=== PATIENT | male | born 1955 | race Caucasian/White ===

== ENCOUNTER 2019-12-31 10:59 | Inpatient (IN) | payer MEDICAID, OTHER ==
[~2019-12-31] VITALS: Ht 170.2 cm; Wt 71.2 kg
[2019-12-31 11:45] LABS: HEMATOCRIT. 44.7 % (42.0-52.0); HEMOGLOBIN. 14.8 g/dL (14.0-18.0); MEAN CORPUSCULAR HEMOGLOBIN 29.6 pg (28.0-32.0); MEAN CORPUSCULAR VOLUME 89.1 fL (80.0-94.0); MEAN PLATELET VOLUME 8.4 fl (7.4-10.4); PLATELET 343 x1000/uL (130-400); RED BLOOD CELL COUNT 5.02 mill/uL (4.7-6.1); RED CELL DISTRIBUTION WIDTH 14.2 % (11.6-14.6)
[2019-12-31 11:47] LABS: CHLORIDE 96 mEq/L (98-107)
[2019-12-31 12:13] LABS: BG BASE EXCESS -5.4 mmol/L (-2.0-2.0); BG BILEVEL POS AIRWAY PRESSURE ST=15/5; BG FRACTION INSPIRED OXYGEN 100; BG HCO3 ACT 16.7 mmol/L (22.0-26.0); BG METHEMOGLOBIN 0.2 % (0.0-1.5); BG OXYHEMOGLOBIN 96.8 % (94.0-97.0); BG PCO2 24.7 mmHg (35.0-45.0); BG PH 7.448 (7.350-7.450); BG PO2 125.4 mmHg (75.0-100.0); BG SAMPLE SITE RIGHT RADIAL; BG VENT MODE MASK - BIPAP; BG VENT RATE 20 set
[2019-12-31 12:23] LABS: PLATELET ESTIMATE NORMAL
[2019-12-31] MEDS ORDERED: ASPIRIN 81MG TABLET PO ONE (13:00)
[2019-12-31] MEDS ORDERED: AZITHROMYCIN 500 MG in DEXT 5% WATER 250 ML IV ONE (13:00)
[2019-12-31] MEDS ORDERED: CEFTRIAXONE 1 G PREMIX 50 ML IV ONE (13:00)
[2019-12-31] MEDS ORDERED: ENOXAPARIN 100MG/ML SYR SUBCUT ONE (13:00)
[2019-12-31] MEDS ORDERED: INSULIN REGULAR (HUMULIN R) 300UNITS/3ML SUBCUT ONE (14:00)
[2019-12-31] MEDS ORDERED: INSULIN GLARGINE UD 100 UNITS/ML SYR SUBCUT NR (15:00)
[2019-12-31 15:03] LABS: INR 1.1; PROTHROMBIN TIME 11.3 sec (9.6-11.0)
[2019-12-31 15:29] LABS: HEPATITIS B SURFACE ANTIGEN NEGATIVE
[2019-12-31 15:59] LABS: HEPATITIS A AB IGM NEGATIVE (NEGATIVE)
[2019-12-31] MEDS ORDERED: FUROSEMIDE 40MG/4ML VIAL IVP SCH (17:15)
[2019-12-31] MEDS ORDERED: ALBUMIN HUMAN 12.5GM/50ML (25%) IV SCH (18:00)
[2019-12-31] MEDS ORDERED: INSULIN GLARGINE UD 100 UNITS/ML SYR SUBCUT SCH (22:00)
[2019-12-31] MEDS ORDERED: ENOXAPARIN 100MG/ML SYR SUBCUT SCH (23:00)
[2019-12-31] MEDS: INSULIN LISPRO 100 UNITS/ML SUBCUT SCH (23:40)
[2019-12-31] MEDS: FUROSEMIDE 40MG/4ML VIAL IVP SCH (23:40)
[2019-12-31] MEDS: DEXAMETHASONE 4MG TABLET PO SCH (23:48)
[2020-01-01 02:00] VITALS: BP 123/72
[2020-01-01] MEDS: ALBUTEROL 6.7GM HFA INHALER ORI SCH ×4 (03:33→22:16)
[2020-01-01 04:00] VITALS: BP 149/76
[2020-01-01] MEDS: BLOOD SUGAR DIAGNOSTIC STRIP TEST SCH ×4 (06:43→20:11)
[2020-01-01 08:00] VITALS: BP 147/71
[2020-01-01] MEDS: DEXAMETHASONE 4MG TABLET PO SCH (08:58)
[2020-01-01] MEDS: FUROSEMIDE 40MG/4ML VIAL IVP SCH (08:58)
[2020-01-01] MEDS: AZITHROMYCIN 250 MG TABLET PO SCH (08:59)
[2020-01-01] MEDS: INSULIN LISPRO 100 UNITS/ML SUBCUT SCH ×5 (08:59→20:18)
[2020-01-01] MEDS: CEFTRIAXONE 1,000 MG in DEXTROSE 5% WATER 50 ML IV SCH (09:00)
[2020-01-01] MEDS ORDERED: INSULIN GLARGINE UD 100 UNITS/ML SYR SUBCUT SCH (10:00)
[2020-01-01 10:07] LABS: HEMOGLOBIN. 13.7 g/dL (14.0-18.0); MEAN CORPUSCULAR VOLUME 89.1 fL (80.0-94.0); MEAN PLATELET VOLUME 8.5 fl (7.4-10.4); PLATELET 302 x1000/uL (130-400); RED BLOOD CELL COUNT 4.72 mill/uL (4.7-6.1)
[2020-01-01 10:16] LABS: CHLORIDE 100 mEq/L (98-107)
[2020-01-01] MEDS ORDERED: METF-815 MT (11:00)
[2020-01-01 12:00] VITALS: BP 122/69
[2020-01-01] MEDS ORDERED: CEFTRIAXONE 1,000 MG in DEXTROSE 5% WATER 50 ML IV SCH (13:00)
[2020-01-01] MEDS: ALBUMIN HUMAN 12.5GM/50ML (25%) IV SCH ×3 (14:28→23:01)
[2020-01-01 16:00] VITALS: BP 125/71
[2020-01-01] MEDS ORDERED: FUROSEMIDE 40MG/4ML VIAL IVP SCH (17:00)
[2020-01-01 20:00] VITALS: BP 127/70
[2020-01-01] MEDS: ENOXAPARIN 80MG/0.8ML SYR SUBCUT SCH (20:10)
[2020-01-01] MEDS: INSULIN GLARGINE UD 100 UNITS/ML SYR SUBCUT SCH (22:16)
[2020-01-01 22:57] LABS: PLATELET ESTIMATE NORMAL
[2020-01-02] VITALS: BP 116/66
[2020-01-02 00:25] LABS: LDL CHOLESTEROL 71 mg/dL (5-100)
[2020-01-02 00:27] LABS: HDL CHOLESTEROL 9 mg/dL (40-59)
[2020-01-02] MEDS: ALBUTEROL 6.7GM HFA INHALER ORI SCH ×4 (03:54→21:16)
[2020-01-02 04:00] VITALS: BP 125/60
[2020-01-02] MEDS: BLOOD SUGAR DIAGNOSTIC STRIP TEST SCH ×4 (06:40→21:14)
[2020-01-02 07:14] LABS: HEMATOCRIT. 38.5 % (42.0-52.0); MEAN CORPUSCULAR HEMOGLOBIN 29.7 pg (28.0-32.0); MEAN CORPUSCULAR VOLUME 87.7 fL (80.0-94.0); MEAN PLATELET VOLUME 8.4 fl (7.4-10.4); PLATELET 287 x1000/uL (130-400); RED BLOOD CELL COUNT 4.39 mill/uL (4.7-6.1); RED CELL DISTRIBUTION WIDTH 13.8 % (11.6-14.6)
[2020-01-02 07:47] LABS: CHLORIDE 102 mEq/L (98-107)
[2020-01-02 08:00] VITALS: BP 133/74
[2020-01-02] MEDS: AZITHROMYCIN 250 MG TABLET PO SCH (08:15)
[2020-01-02] MEDS: DEXAMETHASONE 4MG TABLET PO SCH (08:15)
[2020-01-02] MEDS: ENOXAPARIN 80MG/0.8ML SYR SUBCUT SCH ×2 (08:16→21:24)
[2020-01-02] MEDS: INSULIN LISPRO 100 UNITS/ML SUBCUT SCH ×7 (08:17→21:35)
[2020-01-02] MEDS ORDERED: FUROSEMIDE 40MG/4ML VIAL IVP SCH (09:00)
[2020-01-02] MEDS ORDERED: FUROSEMIDE 40MG TABLET PO SCH (09:00)
[2020-01-02] MEDS: CEFTRIAXONE 1,000 MG in DEXTROSE 5% WATER 50 ML IV SCH (10:54)
[2020-01-02] MEDS: INSULIN GLARGINE UD 100 UNITS/ML SYR SUBCUT SCH ×2 (10:55→21:36)
[2020-01-02 12:00] VITALS: BP 117/73
[2020-01-02 16:00] VITALS: BP 123/73
[2020-01-02 19:35] LABS: PLATELET ESTIMATE NORMAL
[2020-01-02 20:00] VITALS: BP 129/75
[2020-01-02] MEDS: ATORVASTATIN CALCIUM 10MG TABLET PO SCH (21:18)
[2020-01-03] VITALS (8 sets, daily range): BP systolic 90–131; BP diastolic 60–76
[2020-01-03] MEDS: ALBUTEROL 6.7GM HFA INHALER ORI SCH ×4 (04:15→20:32)
[2020-01-03] MEDS: BLOOD SUGAR DIAGNOSTIC STRIP TEST SCH ×4 (06:22→20:30)
[2020-01-03] MEDS: AZITHROMYCIN 250 MG TABLET PO SCH (08:25)
[2020-01-03] MEDS: DEXAMETHASONE 4MG TABLET PO SCH (08:25)
[2020-01-03] MEDS: INSULIN LISPRO 100 UNITS/ML SUBCUT SCH ×6 (08:26→20:48)
[2020-01-03] MEDS: ENOXAPARIN 80MG/0.8ML SYR SUBCUT SCH ×2 (08:27→20:32)
[2020-01-03 08:40] LABS: HEMATOCRIT. 40.9 % (42.0-52.0); HEMOGLOBIN. 13.6 g/dL (14.0-18.0); MEAN CORPUSCULAR HEMOGLOBIN 29.1 pg (28.0-32.0); MEAN CORPUSCULAR VOLUME 87.7 fL (80.0-94.0); MEAN PLATELET VOLUME 8.2 fl (7.4-10.4); PLATELET 335 x1000/uL (130-400); RED BLOOD CELL COUNT 4.66 mill/uL (4.7-6.1); RED CELL DISTRIBUTION WIDTH 13.5 % (11.6-14.6)
[2020-01-03 08:51] LABS: CHLORIDE 103 mEq/L (98-107)
[2020-01-03] MEDS ORDERED: GUAIFENESIN-DM 200MG-20MG/10ML UDC PO PRN (10:00)
[2020-01-03] MEDS: CEFTRIAXONE 1,000 MG in DEXTROSE 5% WATER 50 ML IV SCH (10:00)
[2020-01-03] MEDS: INSULIN GLARGINE UD 100 UNITS/ML SYR SUBCUT SCH ×2 (10:01→20:49)
[2020-01-03] MEDS ORDERED: BENZONATATE 100MG CAPSULE PO PRN (11:15)
[2020-01-03 12:32] LABS: PLATELET ESTIMATE NORMAL
[2020-01-03] MEDS: ATORVASTATIN CALCIUM 10MG TABLET PO SCH (20:30)
[2020-01-04] VITALS (40 sets, daily range): BP systolic 73–130; BP diastolic 44–78
[2020-01-04] MEDS: ALBUTEROL 6.7GM HFA INHALER ORI SCH ×3 (03:56→21:34)
[2020-01-04] MEDS: BLOOD SUGAR DIAGNOSTIC STRIP TEST SCH ×4 (06:28→20:41)
[2020-01-04] MEDS: INSULIN LISPRO 100 UNITS/ML SUBCUT SCH ×4 (07:27→20:41)
[2020-01-04] MEDS: AZITHROMYCIN 250 MG TABLET PO SCH (08:31)
[2020-01-04] MEDS: ENOXAPARIN 80MG/0.8ML SYR SUBCUT SCH ×2 (08:31→20:46)
[2020-01-04] MEDS: DEXAMETHASONE 4MG TABLET PO SCH (08:31)
[2020-01-04 10:00] LABS: BG BASE EXCESS 1.8 mmol/L (-2.0-2.0); BG CARBOXYHEMOGLOBIN 0.6 % (0.5-1.5); BG DEOXYHEMOGLOBIN 11.8 % (0.0-5.0); BG METHEMOGLOBIN 0.1 % (0.0-1.5); BG OXYGEN SATURATION 88.1 % (92.0-98.5); BG OXYHEMOGLOBIN 87.5 % (94.0-97.0); BG PCO2 39.3 mmHg (35.0-45.0); BG PH 7.438 (7.350-7.450); BG PO2 55.4 mmHg (75.0-100.0); BG SAMPLE SITE RIGHT RADIAL; BG TIDAL VOLUME(mL) 500 mL; BG VENT MODE VENT- PRVC; BG VENT RATE 18 set
[2020-01-04] MEDS: INSULIN GLARGINE UD 100 UNITS/ML SYR SUBCUT SCH ×2 (10:00→21:26)
[2020-01-04] MEDS: MIDAZOLAM HCL 100 MG in DEXT 5% WATER 80 ML IV PRN ×2 (10:31→20:53)
[2020-01-04] MEDS: FENTANYL CITRATE/PF 1,000 MCG in SODIUM CHLORIDE 0.9% 80 ML IV PRN ×2 (10:32→20:55)
[2020-01-04] MEDS: CEFTRIAXONE 1,000 MG in DEXTROSE 5% WATER 50 ML IV SCH (11:24)
[2020-01-04] MEDS: ACETAMINOPHEN 650MG/20.3ML UDC PO PRN (15:14)
[2020-01-04 16:16] LABS: CLARITY URINE CLEAR (CLEAR); COLOR URINE YELLOW (YELLOW); KETONES URINE TRACE (NEGATIVE); LEUKOCYTE ESTERASE URINE NEGATIVE (NEGATIVE); NITRITE URINE NEGATIVE (NEGATIVE); OCCULT BLOOD URINE 1+ (NEGATIVE); PH URINE 5.5 (4.5-8.0); PROTEIN URINE 3+ (NEGATIVE); SPECIFIC GRAVITY URINE 1.026 (1.005-1.030); UROBILINOGEN URINE 0.2 E.U./dL (0.2-1.0)
[2020-01-04] MEDS: DEXTROSE 50% WATER 50ML SYRINGE IV PRN (18:08)
[2020-01-04] MEDS: PHENYLEPHRINE 100 MG in DEXT 5% WATER 240 ML IV PRN (18:52)
[2020-01-04] MEDS: ATORVASTATIN CALCIUM 10MG TABLET PO SCH (20:45)
[2020-01-05] VITALS (94 sets, daily range): BP systolic 77–139; BP diastolic 51–75
[2020-01-05] MEDS: ALBUTEROL 6.7GM HFA INHALER ORI SCH ×2 (01:12→09:05)
[2020-01-05] MEDS: PHENYLEPHRINE 100 MG in DEXT 5% WATER 240 ML IV PRN ×2 (05:14→21:53)
[2020-01-05] MEDS: BLOOD SUGAR DIAGNOSTIC STRIP TEST SCH ×4 (06:15→20:59)
[2020-01-05] MEDS: INSULIN LISPRO 100 UNITS/ML SUBCUT SCH ×4 (06:15→20:59)
[2020-01-05 06:16] LABS: HEMATOCRIT. 45.4 % (42.0-52.0); MEAN CORPUSCULAR HEMOGLOBIN 29.8 pg (28.0-32.0); MEAN CORPUSCULAR VOLUME 90.1 fL (80.0-94.0); MEAN PLATELET VOLUME 8.5 fl (7.4-10.4); PLATELET 297 x1000/uL (130-400); RED BLOOD CELL COUNT 5.04 mill/uL (4.7-6.1); RED CELL DISTRIBUTION WIDTH 14.2 % (11.6-14.6)
[2020-01-05] MEDS: DEXTROSE 50% WATER 50ML SYRINGE IV PRN (06:16)
[2020-01-05 06:26] LABS: CHLORIDE 104 mEq/L (98-107)
[2020-01-05 08:15] LABS: BG BASE EXCESS 0.6 mmol/L (-2.0-2.0); BG CARBOXYHEMOGLOBIN 0.3 % (0.5-1.5); BG DEOXYHEMOGLOBIN 1.2 % (0.0-5.0); BG FRACTION INSPIRED OXYGEN 100; BG HCO3 ACT 26.5 mmol/L (22.0-26.0); BG METHEMOGLOBIN 0.3 % (0.0-1.5); BG OXYGEN SATURATION 98.8 % (92.0-98.5); BG OXYHEMOGLOBIN 98.2 % (94.0-97.0); BG PCO2 46.9 mmHg (35.0-45.0); BG PO2 204.8 mmHg (75.0-100.0); BG SAMPLE SITE RIGHT BRACHIAL; BG TIDAL VOLUME(mL) 500 mL; BG TOTAL HEMOGLOBIN 15.3 g/dL (12.0-18.0); BG VENT MODE PRVC; BG VENT RATE 16 set
[2020-01-05] MEDS: AZITHROMYCIN 250 MG TABLET PO SCH (08:39)
[2020-01-05] MEDS: DEXAMETHASONE 4MG TABLET PO SCH (08:39)
[2020-01-05] MEDS: ENOXAPARIN 80MG/0.8ML SYR SUBCUT SCH ×2 (08:39→20:50)
[2020-01-05] MEDS ORDERED: LIDOCAINE HCL 1% 20ML VIAL (Pyxis) INJ ONE (09:56)
[2020-01-05] MEDS: CEFTRIAXONE 1,000 MG in DEXTROSE 5% WATER 50 ML IV SCH (10:30)
[2020-01-05] MEDS: INSULIN GLARGINE UD 100 UNITS/ML SYR SUBCUT SCH ×2 (10:31→21:33)
[2020-01-05] MEDS ORDERED: IPRATROPIUM/ALBUTEROL 0.5-3(2.5)MG/3ML NEB HHN PRN (10:45)
[2020-01-05 12:20] LABS: PLATELET ESTIMATE NORMAL
[2020-01-05] MEDS: IPRATROPIUM/ALBUTEROL 0.5-3(2.5)MG/3ML NEB HHN SCH ×4 (12:27→23:49)
[2020-01-05] MEDS: FENTANYL CITRATE/PF 1,000 MCG in SODIUM CHLORIDE 0.9% 80 ML IV PRN (17:16)
[2020-01-05] MEDS: MIDAZOLAM HCL 100 MG in DEXT 5% WATER 80 ML IV PRN (17:17)
[2020-01-05] MEDS: ATORVASTATIN CALCIUM 10MG TABLET PO SCH (20:50)
[2020-01-06] VITALS (93 sets, daily range): BP systolic 99–121; BP diastolic 53–75
[2020-01-06] MEDS: IPRATROPIUM/ALBUTEROL 0.5-3(2.5)MG/3ML NEB HHN SCH ×5 (00:10→20:00)
[2020-01-06] MEDS: BLOOD SUGAR DIAGNOSTIC STRIP TEST SCH ×4 (05:47→20:33)
[2020-01-06 05:55] LABS: HEMATOCRIT. 41.2 % (42.0-52.0); HEMOGLOBIN. 13.7 g/dL (14.0-18.0); MEAN CORPUSCULAR HEMOGLOBIN 30.3 pg (28.0-32.0); MEAN CORPUSCULAR VOLUME 91.5 fL (80.0-94.0); RED BLOOD CELL COUNT 4.51 mill/uL (4.7-6.1); RED CELL DISTRIBUTION WIDTH 14.2 % (11.6-14.6)
[2020-01-06 05:58] LABS: CHLORIDE 105 mEq/L (98-107)
[2020-01-06] MEDS: INSULIN LISPRO 100 UNITS/ML SUBCUT SCH ×4 (06:00→20:58)
[2020-01-06 07:21] LABS: MEAN PLATELET VOLUME 8.1 fl (7.4-10.4); PLATELET ESTIMATE NORMAL
[2020-01-06 07:22] LABS: PLATELET 317 x1000/uL (130-400)
[2020-01-06] MEDS: DEXAMETHASONE 4MG TABLET PO SCH (08:39)
[2020-01-06] MEDS: ENOXAPARIN 80MG/0.8ML SYR SUBCUT SCH ×2 (08:39→20:57)
[2020-01-06 08:48] LABS: BG CARBOXYHEMOGLOBIN 0.4 % (0.5-1.5); BG DEOXYHEMOGLOBIN 1.3 % (0.0-5.0); BG FRACTION INSPIRED OXYGEN 70; BG HCO3 ACT 30.6 mmol/L (22.0-26.0); BG METHEMOGLOBIN 0.5 % (0.0-1.5); BG OXYGEN SATURATION 98.7 % (92.0-98.5); BG OXYHEMOGLOBIN 97.8 % (94.0-97.0); BG PCO2 57.6 mmHg (35.0-45.0); BG PH 7.343 (7.350-7.450); BG PO2 160.1 mmHg (75.0-100.0); BG SAMPLE SITE RIGHT RADIAL; BG TIDAL VOLUME(mL) 500 mL; BG TOTAL HEMOGLOBIN 16.8 g/dL (12.0-18.0); BG VENT MODE PRVC; BG VENT RATE 16 set
[2020-01-06] MEDS: CEFTRIAXONE 1,000 MG in DEXTROSE 5% WATER 50 ML IV SCH (09:01)
[2020-01-06] MEDS: INSULIN GLARGINE UD 100 UNITS/ML SYR SUBCUT SCH (10:17)
[2020-01-06] MEDS: MIDAZOLAM HCL 100 MG in DEXT 5% WATER 80 ML IV PRN (13:45)
[2020-01-06] MEDS: FENTANYL CITRATE/PF 1,000 MCG in SODIUM CHLORIDE 0.9% 80 ML IV PRN (13:46)
[2020-01-06] MEDS: PHENYLEPHRINE 100 MG in DEXT 5% WATER 240 ML IV PRN (17:03)
[2020-01-06] MEDS: ATORVASTATIN CALCIUM 10MG TABLET PO SCH (20:57)
[2020-01-06] MEDS ORDERED: INSULIN GLARGINE UD 100 UNITS/ML SYR SUBCUT SCH (22:00)
[2020-01-07] VITALS (89 sets, daily range): BP systolic 95–136; BP diastolic 49–74
[2020-01-07] MEDS: IPRATROPIUM/ALBUTEROL 0.5-3(2.5)MG/3ML NEB HHN SCH ×6 (00:10→20:42)
[2020-01-07 05:00] LABS: HEMATOCRIT. 38.2 % (42.0-52.0); HEMOGLOBIN. 12.5 g/dL (14.0-18.0); MEAN CORPUSCULAR HEMOGLOBIN 29.6 pg (28.0-32.0); MEAN CORPUSCULAR VOLUME 90.3 fL (80.0-94.0); MEAN PLATELET VOLUME 8.1 fl (7.4-10.4); PLATELET 297 x1000/uL (130-400); RED BLOOD CELL COUNT 4.23 mill/uL (4.7-6.1)
[2020-01-07 05:16] LABS: CHLORIDE 110 mEq/L (98-107)
[2020-01-07] MEDS: BLOOD SUGAR DIAGNOSTIC STRIP TEST SCH ×4 (05:40→23:04)
[2020-01-07] MEDS: INSULIN LISPRO 100 UNITS/ML SUBCUT SCH ×6 (05:42→23:06)
[2020-01-07] MEDS: ENOXAPARIN 80MG/0.8ML SYR SUBCUT SCH (08:52)
[2020-01-07] MEDS: DEXAMETHASONE 4MG TABLET PO SCH (08:52)
[2020-01-07 10:12] LABS: BG BASE EXCESS 1.6 mmol/L (-2.0-2.0); BG CARBOXYHEMOGLOBIN 0.1 % (0.5-1.5); BG FRACTION INSPIRED OXYGEN 50; BG HCO3 ACT 27.4 mmol/L (22.0-26.0); BG METHEMOGLOBIN 0.3 % (0.0-1.5); BG OXYHEMOGLOBIN 93.6 % (94.0-97.0); BG PCO2 48.1 mmHg (35.0-45.0); BG PH 7.373 (7.350-7.450); BG PO2 73.8 mmHg (75.0-100.0); BG SAMPLE SITE RIGHT RADIAL; BG TIDAL VOLUME(mL) 500 mL; BG TOTAL HEMOGLOBIN 12.4 g/dL (12.0-18.0); BG VENT MODE VENT - PRVC; BG VENT RATE 18 set
[2020-01-07] MEDS: MIDAZOLAM HCL 100 MG in DEXT 5% WATER 80 ML IV PRN (10:19)
[2020-01-07] MEDS: FENTANYL CITRATE/PF 1,000 MCG in SODIUM CHLORIDE 0.9% 80 ML IV PRN (10:20)
[2020-01-07] MEDS ORDERED: MIDODRINE HCL 5MG TABLET PO SCH (10:30)
[2020-01-07 10:48] LABS: PLATELET ESTIMATE NORMAL
[2020-01-07] MEDS ORDERED: SODIUM POLYSTYRENE SULFONATE 15 G/60 ML BOT PO SCH (11:00)
[2020-01-07] MEDS ORDERED: SODIUM CHLORIDE 0.9% 500 ML IV NR (11:15)
[2020-01-07] MEDS ORDERED: INSULIN LISPRO 100 UNITS/ML SUBCUT SCH (11:30)
[2020-01-07] MEDS: MIDODRINE HCL 5MG TABLET PO SCH ×2 (14:46→22:38)
[2020-01-07] MEDS: ATORVASTATIN CALCIUM 10MG TABLET PO SCH (20:33)
[2020-01-07] MEDS: INSULIN GLARGINE UD 100 UNITS/ML SYR SUBCUT SCH (22:49)
[2020-01-08] VITALS (93 sets, daily range): BP systolic 98–183; BP diastolic 49–97
[2020-01-08] MEDS: IPRATROPIUM/ALBUTEROL 0.5-3(2.5)MG/3ML NEB HHN SCH ×6 (00:52→20:20)
[2020-01-08] MEDS: FENTANYL CITRATE/PF 1,000 MCG in SODIUM CHLORIDE 0.9% 80 ML IV PRN ×2 (04:17→18:52)
[2020-01-08] MEDS: BLOOD SUGAR DIAGNOSTIC STRIP TEST SCH ×4 (05:13→23:07)
[2020-01-08] MEDS: MIDODRINE HCL 5MG TABLET PO SCH ×3 (05:13→22:37)
[2020-01-08] MEDS: INSULIN LISPRO 100 UNITS/ML SUBCUT SCH ×8 (05:14→23:07)
[2020-01-08 05:58] LABS: HEMATOCRIT. 38.6 % (42.0-52.0); HEMOGLOBIN. 12.5 g/dL (14.0-18.0); MEAN CORPUSCULAR HEMOGLOBIN 29.5 pg (28.0-32.0); MEAN CORPUSCULAR VOLUME 90.7 fL (80.0-94.0); PLATELET 221 x1000/uL (130-400); RED BLOOD CELL COUNT 4.25 mill/uL (4.7-6.1); RED CELL DISTRIBUTION WIDTH 13.9 % (11.6-14.6)
[2020-01-08 06:05] LABS: CHLORIDE 117 mEq/L (98-107)
[2020-01-08 07:58] LABS: BG BASE EXCESS 6.2 mmol/L (-2.0-2.0); BG CARBOXYHEMOGLOBIN 0.3 % (0.5-1.5); BG DEOXYHEMOGLOBIN 8.2 % (0.0-5.0); BG HCO3 ACT 31.5 mmol/L (22.0-26.0); BG OXYGEN SATURATION 91.8 % (92.0-98.5); BG OXYHEMOGLOBIN 91.5 % (94.0-97.0); BG PCO2 48.4 mmHg (35.0-45.0); BG PH 7.432 (7.350-7.450); BG PO2 64.6 mmHg (75.0-100.0); BG SAMPLE SITE A-LINE; BG TIDAL VOLUME(mL) 500 mL; BG TOTAL HEMOGLOBIN 12.5 g/dL (12.0-18.0); BG VENT MODE VENT- PRVC; BG VENT RATE 18 set
[2020-01-08 08:01] LABS: PLATELET ESTIMATE NORMAL
[2020-01-08] MEDS: ENOXAPARIN 40MG/0.4ML SYR SUBCUT SCH (09:00)
[2020-01-08] MEDS: ACETAMINOPHEN 650MG/20.3ML UDC PO PRN (09:15)
[2020-01-08] MEDS: DEXAMETHASONE 4MG TABLET PO SCH (09:15)
[2020-01-08] MEDS: INSULIN GLARGINE UD 100 UNITS/ML SYR SUBCUT SCH ×2 (09:22→23:00)
[2020-01-08] MEDS ORDERED: LACTULOSE 20G/30ML UDC PO NR (10:30)
[2020-01-08] MEDS ORDERED: LACTULOSE 20G/30ML UDC PO PRN (10:30)
[2020-01-08] MEDS ORDERED: DOCUSATE SODIUM 250MG CAPSULE PO SCH (10:30)
[2020-01-08] MEDS: DOCUSATE SODIUM SUGAR FREE 100MG/10ML UDC NG SCH (13:07)
[2020-01-08] MEDS: LEVOFLOXACIN 500MG PREMIX 100 ML IV SCH (17:18)
[2020-01-08] MEDS ORDERED: PIPERACILLIN/TAZOBACTAM 2.25 G in DEXTROSE 5% WATER 50 ML IV SCH (18:00)
[2020-01-08] MEDS: QUETIAPINE FUMARATE 25MG TABLET PO SCH (20:08)
[2020-01-08] MEDS: ATORVASTATIN CALCIUM 10MG TABLET PO SCH (20:08)
[2020-01-09] VITALS (108 sets, daily range): BP systolic -5–173; BP diastolic -6–88
[2020-01-09] MEDS: IPRATROPIUM/ALBUTEROL 0.5-3(2.5)MG/3ML NEB HHN SCH ×6 (00:22→20:58)
[2020-01-09] MEDS: FENTANYL CITRATE/PF 1,000 MCG in SODIUM CHLORIDE 0.9% 80 ML IV PRN ×3 (05:18→22:56)
[2020-01-09] MEDS: INSULIN LISPRO 100 UNITS/ML SUBCUT SCH ×6 (05:35→17:36)
[2020-01-09] MEDS: MIDODRINE HCL 5MG TABLET PO SCH ×3 (05:35→22:44)
[2020-01-09] MEDS: BLOOD SUGAR DIAGNOSTIC STRIP TEST SCH ×3 (05:35→17:36)
[2020-01-09 05:45] LABS: HEMATOCRIT. 34.3 % (42.0-52.0); HEMOGLOBIN. 11.2 g/dL (14.0-18.0); MEAN CORPUSCULAR HEMOGLOBIN 29.8 pg (28.0-32.0); MEAN CORPUSCULAR VOLUME 91.5 fL (80.0-94.0); MEAN PLATELET VOLUME 8.5 fl (7.4-10.4); PLATELET 164 x1000/uL (130-400); RED BLOOD CELL COUNT 3.75 mill/uL (4.7-6.1); RED CELL DISTRIBUTION WIDTH 13.9 % (11.6-14.6)
[2020-01-09 05:51] LABS: CHLORIDE 119 mEq/L (98-107)
[2020-01-09] MEDS: DOCUSATE SODIUM SUGAR FREE 100MG/10ML UDC NG SCH (09:17)
[2020-01-09] MEDS: DEXAMETHASONE 4MG TABLET PO SCH (09:17)
[2020-01-09] MEDS: QUETIAPINE FUMARATE 25MG TABLET PO SCH ×2 (09:17→21:15)
[2020-01-09] MEDS: ENOXAPARIN 40MG/0.4ML SYR SUBCUT SCH (09:18)
[2020-01-09 09:32] LABS: BG BASE EXCESS 9.5 mmol/L (-2.0-2.0); BG CARBOXYHEMOGLOBIN 1.2 % (0.5-1.5); BG FRACTION INSPIRED OXYGEN 60; BG HCO3 ACT 34.5 mmol/L (22.0-26.0); BG METHEMOGLOBIN 0.1 % (0.0-1.5); BG OXYGEN SATURATION 80.7 % (92.0-98.5); BG OXYHEMOGLOBIN 79.7 % (94.0-97.0); BG PCO2 48.2 mmHg (35.0-45.0); BG PH 7.473 (7.350-7.450); BG PO2 43.5 mmHg (75.0-100.0); BG SAMPLE SITE A-LINE; BG TIDAL VOLUME(mL) 500 mL; BG TOTAL HEMOGLOBIN 13.9 g/dL (12.0-18.0); BG VENT MODE VENT- PRVC; BG VENT RATE 18 set
[2020-01-09] MEDS: INSULIN GLARGINE UD 100 UNITS/ML SYR SUBCUT SCH (10:43)
[2020-01-09] MEDS ORDERED: FUROSEMIDE 20MG/2ML VIAL IVP SCH (10:45)
[2020-01-09] MEDS ORDERED: SORBITOL 70% SOLN 30ML PO SCH (11:30)
[2020-01-09] MEDS: MIDAZOLAM HCL 100 MG in DEXT 5% WATER 80 ML IV PRN ×2 (11:34→13:56)
[2020-01-09 12:16] LABS: BG BASE EXCESS 9.1 mmol/L (-2.0-2.0); BG CARBOXYHEMOGLOBIN 0.3 % (0.5-1.5); BG DEOXYHEMOGLOBIN 11.5 % (0.0-5.0); BG FRACTION INSPIRED OXYGEN 70; BG HCO3 ACT 34.5 mmol/L (22.0-26.0); BG METHEMOGLOBIN 0.6 % (0.0-1.5); BG OXYGEN SATURATION 88.4 % (92.0-98.5); BG OXYHEMOGLOBIN 87.6 % (94.0-97.0); BG PCO2 49.7 mmHg (35.0-45.0); BG PH 7.459 (7.350-7.450); BG PO2 54.5 mmHg (75.0-100.0); BG SAMPLE SITE A-LINE; BG TIDAL VOLUME(mL) 500 mL; BG TOTAL HEMOGLOBIN 14.2 g/dL (12.0-18.0); BG VENT MODE VENT- PRVC; BG VENT RATE 18 set
[2020-01-09] MEDS: DEXTROSE 5% WATER 1,000 ML IV SCH (13:08)
[2020-01-09 14:11] LABS: PLATELET ESTIMATE NORMAL
[2020-01-09] MEDS: LEVOFLOXACIN 500MG PREMIX 100 ML IV SCH (14:56)
[2020-01-09] MEDS ORDERED: REMDESIVIR 200 MG in SODIUM CHLORIDE 0.9% 250 ML IV SCH (21:00)
[2020-01-09] MEDS: ATORVASTATIN CALCIUM 10MG TABLET PO SCH (21:15)
[2020-01-09] MEDS: METOPROLOL TARTRATE 25MG TABLET GT SCH (21:16)
[2020-01-09] MEDS ORDERED: INSULIN GLARGINE UD 100 UNITS/ML SYR SUBCUT SCH (22:00)
[2020-01-09] MEDS: PHENYLEPHRINE 100 MG in DEXT 5% WATER 240 ML IV PRN (22:53)
[2020-01-09] MEDS: ACETAMINOPHEN 650MG/20.3ML UDC PO PRN (23:18)
[2020-01-10] VITALS (87 sets, daily range): BP systolic 79–147; BP diastolic 51–84
[2020-01-10] MEDS: IPRATROPIUM/ALBUTEROL 0.5-3(2.5)MG/3ML NEB HHN SCH ×6 (00:49→20:38)
[2020-01-10] MEDS: NOREPINEPHRINE 8 MG in DEXT 5% WATER 242 ML IV PRN (02:42)
[2020-01-10] MEDS: FENTANYL CITRATE/PF 1,000 MCG in SODIUM CHLORIDE 0.9% 80 ML IV PRN ×3 (03:49→20:34)
[2020-01-10] MEDS: MIDAZOLAM HCL 100 MG in DEXT 5% WATER 80 ML IV PRN ×2 (04:34→15:01)
[2020-01-10 05:44] LABS: HEMATOCRIT. 43.6 % (42.0-52.0); MEAN CORPUSCULAR HEMOGLOBIN 29.4 pg (28.0-32.0); MEAN CORPUSCULAR VOLUME 91.7 fL (80.0-94.0); MEAN PLATELET VOLUME 9.6 fl (7.4-10.4); PLATELET 186 x1000/uL (130-400); RED BLOOD CELL COUNT 4.75 mill/uL (4.7-6.1); RED CELL DISTRIBUTION WIDTH 14.2 % (11.6-14.6)
[2020-01-10 05:48] LABS: CHLORIDE 107 mEq/L (98-107)
[2020-01-10] MEDS: INSULIN LISPRO 100 UNITS/ML SUBCUT SCH ×5 (06:00→23:50)
[2020-01-10] MEDS: BLOOD SUGAR DIAGNOSTIC STRIP TEST SCH ×5 (06:14→23:36)
[2020-01-10] MEDS: MIDODRINE HCL 5MG TABLET PO SCH ×3 (06:14→22:13)
[2020-01-10] MEDS: ACETAMINOPHEN 650MG/20.3ML UDC PO PRN ×3 (06:21→17:52)
[2020-01-10] MEDS: PHENYLEPHRINE 100 MG in DEXT 5% WATER 240 ML IV PRN ×2 (07:44→17:26)
[2020-01-10 07:48] LABS: BG BASE EXCESS 6.7 mmol/L (-2.0-2.0); BG CARBOXYHEMOGLOBIN 1.1 % (0.5-1.5); BG DEOXYHEMOGLOBIN 25.9 % (0.0-5.0); BG HCO3 ACT 33.3 mmol/L (22.0-26.0); BG METHEMOGLOBIN 0.3 % (0.0-1.5); BG OXYGEN SATURATION 73.7 % (92.0-98.5); BG OXYHEMOGLOBIN 72.7 % (94.0-97.0); BG PCO2 55.4 mmHg (35.0-45.0); BG PH 7.397 (7.350-7.450); BG PO2 41.1 mmHg (75.0-100.0); BG SAMPLE SITE RIGHT BRACHIAL; BG TIDAL VOLUME(mL) 500 mL; BG TOTAL HEMOGLOBIN 14.6 g/dL (12.0-18.0); BG VENT MODE VENT- PRVC; BG VENT RATE 18 set
[2020-01-10] MEDS: METOPROLOL TARTRATE 25MG TABLET GT SCH ×2 (09:00→21:14)
[2020-01-10] MEDS: DOCUSATE SODIUM SUGAR FREE 100MG/10ML UDC NG SCH (09:10)
[2020-01-10] MEDS: DEXAMETHASONE 4MG TABLET PO SCH (09:11)
[2020-01-10] MEDS: ENOXAPARIN 40MG/0.4ML SYR SUBCUT SCH (09:12)
[2020-01-10] MEDS: QUETIAPINE FUMARATE 25MG TABLET PO SCH ×2 (09:12→21:14)
[2020-01-10] MEDS: DEXTROSE 5% WATER 1,000 ML IV SCH (09:36)
[2020-01-10 10:12] LABS: PLATELET ESTIMATE NORMAL
[2020-01-10] MEDS ORDERED: SODIUM CHLORIDE 0.45% 250 ML IV NR (11:00)
[2020-01-10 11:12] LABS: BG BASE EXCESS 5.2 mmol/L (-2.0-2.0); BG CARBOXYHEMOGLOBIN 1.1 % (0.5-1.5); BG DEOXYHEMOGLOBIN 28.7 % (0.0-5.0); BG FRACTION INSPIRED OXYGEN 708; BG HCO3 ACT 31.4 mmol/L (22.0-26.0); BG METHEMOGLOBIN 0.3 % (0.0-1.5); BG OXYGEN SATURATION 70.9 % (92.0-98.5); BG OXYHEMOGLOBIN 69.9 % (94.0-97.0); BG PCO2 52.5 mmHg (35.0-45.0); BG PH 7.395 (7.350-7.450); BG PO2 38.6 mmHg (75.0-100.0); BG SAMPLE SITE RIGHT RADIAL; BG TIDAL VOLUME(mL) 500 mL; BG TOTAL HEMOGLOBIN 14.5 g/dL (12.0-18.0); BG VENT MODE VENT- PRVC; BG VENT RATE 18 set
[2020-01-10] MEDS: AMPICILLIN SOD/SULBACTAM NA 3 G in SODIUM CHLORIDE 0.9% 100 ML IV SCH ×2 (16:36→23:35)
[2020-01-10] MEDS: VASOPRESSIN 20 UNIT in SODIUM CHLORIDE 0.9% 99 ML IV PRN (17:22)
[2020-01-10] MEDS: ATORVASTATIN CALCIUM 10MG TABLET PO SCH (21:14)
[2020-01-10] MEDS: REMDESIVIR 100 MG in SODIUM CHLORIDE 0.9% 250 ML IV SCH (21:15)
[2020-01-10] MEDS ORDERED: INSULIN GLARGINE UD 100 UNITS/ML SYR SUBCUT SCH (22:00)
[2020-01-11] VITALS (83 sets, daily range): BP systolic 90–126; BP diastolic 50–79
[2020-01-11] MEDS: IPRATROPIUM/ALBUTEROL 0.5-3(2.5)MG/3ML NEB HHN SCH ×6 (00:19→21:42)
[2020-01-11] MEDS: VASOPRESSIN 20 UNIT in SODIUM CHLORIDE 0.9% 99 ML IV PRN ×2 (02:13→12:02)
[2020-01-11] MEDS: PHENYLEPHRINE 100 MG in DEXT 5% WATER 240 ML IV PRN ×3 (02:25→21:11)
[2020-01-11] MEDS: MIDAZOLAM HCL 100 MG in DEXT 5% WATER 80 ML IV PRN (04:43)
[2020-01-11 05:13] LABS: HEMATOCRIT. 39.7 % (42.0-52.0); HEMOGLOBIN. 12.9 g/dL (14.0-18.0); MEAN CORPUSCULAR HEMOGLOBIN 29.4 pg (28.0-32.0); MEAN CORPUSCULAR VOLUME 90.3 fL (80.0-94.0); MEAN PLATELET VOLUME 9.3 fl (7.4-10.4); PLATELET 227 x1000/uL (130-400); RED CELL DISTRIBUTION WIDTH 14.2 % (11.6-14.6)
[2020-01-11 05:18] LABS: CHLORIDE 106 mEq/L (98-107)
[2020-01-11] MEDS: AMPICILLIN SOD/SULBACTAM NA 3 G in SODIUM CHLORIDE 0.9% 100 ML IV SCH ×4 (05:36→23:05)
[2020-01-11] MEDS: MIDODRINE HCL 5MG TABLET PO SCH ×3 (05:36→21:11)
[2020-01-11] MEDS: BLOOD SUGAR DIAGNOSTIC STRIP TEST SCH ×4 (05:37→23:51)
[2020-01-11] MEDS: INSULIN LISPRO 100 UNITS/ML SUBCUT SCH ×4 (06:00→23:46)
[2020-01-11 07:17] LABS: PLATELET ESTIMATE NORMAL
[2020-01-11] MEDS: FENTANYL CITRATE/PF 1,000 MCG in SODIUM CHLORIDE 0.9% 80 ML IV PRN ×2 (07:21→20:08)
[2020-01-11 08:17] LABS: BG BASE EXCESS 5.6 mmol/L (-2.0-2.0); BG CARBOXYHEMOGLOBIN 0.3 % (0.5-1.5); BG DEOXYHEMOGLOBIN 11.3 % (0.0-5.0); BG FRACTION INSPIRED OXYGEN 100; BG HCO3 ACT 31.9 mmol/L (22.0-26.0); BG METHEMOGLOBIN 0.6 % (0.0-1.5); BG OXYGEN SATURATION 88.6 % (92.0-98.5); BG OXYHEMOGLOBIN 87.8 % (94.0-97.0); BG PCO2 53.6 mmHg (35.0-45.0); BG PH 7.393 (7.350-7.450); BG SAMPLE SITE RIGHT BRACHIAL; BG TIDAL VOLUME(mL) 500 mL; BG TOTAL HEMOGLOBIN 13.4 g/dL (12.0-18.0); BG VENT MODE PRVC; BG VENT RATE 18 set
[2020-01-11] MEDS: DEXTROSE 5% WATER 1,000 ML IV SCH (09:29)
[2020-01-11] MEDS: QUETIAPINE FUMARATE 25MG TABLET PO SCH ×2 (09:51→21:12)
[2020-01-11] MEDS: METOPROLOL TARTRATE 25MG TABLET GT SCH ×2 (09:51→21:00)
[2020-01-11] MEDS: DEXAMETHASONE 4MG TABLET PO SCH (09:52)
[2020-01-11] MEDS: ENOXAPARIN 40MG/0.4ML SYR SUBCUT SCH (09:52)
[2020-01-11] MEDS: DOCUSATE SODIUM SUGAR FREE 100MG/10ML UDC NG SCH (09:52)
[2020-01-11] MEDS: ACETAMINOPHEN 650MG/20.3ML UDC PO PRN ×2 (09:57→14:34)
[2020-01-11 20:51] LABS: CHLORIDE 100 mEq/L (98-107)
[2020-01-11] MEDS: REMDESIVIR 100 MG in SODIUM CHLORIDE 0.9% 250 ML IV SCH (21:11)
[2020-01-11] MEDS: ATORVASTATIN CALCIUM 10MG TABLET PO SCH (21:12)
[2020-01-12] VITALS (95 sets, daily range): BP systolic 88–165; BP diastolic 47–97
[2020-01-12] MEDS: IPRATROPIUM/ALBUTEROL 0.5-3(2.5)MG/3ML NEB HHN SCH ×6 (00:49→21:21)
[2020-01-12] MEDS: VASOPRESSIN 20 UNIT in SODIUM CHLORIDE 0.9% 99 ML IV PRN (04:48)
[2020-01-12] MEDS: BLOOD SUGAR DIAGNOSTIC STRIP TEST SCH ×3 (05:20→17:03)
[2020-01-12] MEDS: DEXTROSE 5% WATER 1,000 ML IV SCH (05:21)
[2020-01-12] MEDS: AMPICILLIN SOD/SULBACTAM NA 3 G in SODIUM CHLORIDE 0.9% 100 ML IV SCH ×3 (05:21→17:02)
[2020-01-12] MEDS: MIDODRINE HCL 5MG TABLET PO SCH ×3 (05:33→22:29)
[2020-01-12] MEDS: INSULIN LISPRO 100 UNITS/ML SUBCUT SCH ×3 (05:34→18:22)
[2020-01-12 05:53] LABS: CHLORIDE 98 mEq/L (98-107)
[2020-01-12 05:55] LABS: HEMOGLOBIN. 12.4 g/dL (14.0-18.0); MEAN CORPUSCULAR HEMOGLOBIN 29.7 pg (28.0-32.0); MEAN CORPUSCULAR VOLUME 91.1 fL (80.0-94.0); MEAN PLATELET VOLUME 9.7 fl (7.4-10.4); PLATELET 203 x1000/uL (130-400); RED BLOOD CELL COUNT 4.17 mill/uL (4.7-6.1); RED CELL DISTRIBUTION WIDTH 13.7 % (11.6-14.6)
[2020-01-12] MEDS: PHENYLEPHRINE 100 MG in DEXT 5% WATER 240 ML IV PRN (06:08)
[2020-01-12] MEDS: FENTANYL CITRATE/PF 1,000 MCG in SODIUM CHLORIDE 0.9% 80 ML IV PRN ×2 (06:10→17:25)
[2020-01-12] MEDS: METOPROLOL TARTRATE 25MG TABLET GT SCH ×2 (09:16→22:28)
[2020-01-12] MEDS: DOCUSATE SODIUM SUGAR FREE 100MG/10ML UDC NG SCH (09:16)
[2020-01-12] MEDS: DEXAMETHASONE 4MG TABLET PO SCH (09:17)
[2020-01-12] MEDS: QUETIAPINE FUMARATE 25MG TABLET PO SCH ×2 (09:17→22:29)
[2020-01-12] MEDS: ENOXAPARIN 40MG/0.4ML SYR SUBCUT SCH (09:17)
[2020-01-12] MEDS: METOPROLOL TARTRATE 5MG/5ML VIAL IV PRN ×2 (16:50→18:48)
[2020-01-12] MEDS: ACETAMINOPHEN 650MG/20.3ML UDC PO PRN ×2 (17:02→22:32)
[2020-01-12] MEDS: MIDAZOLAM HCL 100 MG in DEXT 5% WATER 80 ML IV PRN (17:24)
[2020-01-12 21:19] LABS: PLATELET ESTIMATE NORMAL
[2020-01-12] MEDS: ATORVASTATIN CALCIUM 10MG TABLET PO SCH (22:29)
[2020-01-12] MEDS: REMDESIVIR 100 MG in SODIUM CHLORIDE 0.9% 250 ML IV SCH (22:30)
[2020-01-13] VITALS (101 sets, daily range): BP systolic 68–135; BP diastolic 44–85
[2020-01-13] MEDS: IPRATROPIUM/ALBUTEROL 0.5-3(2.5)MG/3ML NEB HHN SCH ×6 (00:09→20:53)
[2020-01-13] MEDS: AMPICILLIN SOD/SULBACTAM NA 3 G in SODIUM CHLORIDE 0.9% 100 ML IV SCH ×4 (01:34→18:43)
[2020-01-13] MEDS: MIDAZOLAM HCL 100 MG in DEXT 5% WATER 80 ML IV PRN ×2 (02:22→15:09)
[2020-01-13] MEDS: FENTANYL CITRATE/PF 1,000 MCG in SODIUM CHLORIDE 0.9% 80 ML IV PRN ×2 (03:36→15:08)
[2020-01-13] MEDS: ACETAMINOPHEN 650MG/20.3ML UDC PO PRN (04:40)
[2020-01-13 05:32] LABS: HEMATOCRIT. 37.2 % (42.0-52.0); HEMOGLOBIN. 12.3 g/dL (14.0-18.0); MEAN CORPUSCULAR HEMOGLOBIN 29.6 pg (28.0-32.0); MEAN CORPUSCULAR VOLUME 89.6 fL (80.0-94.0); MEAN PLATELET VOLUME 9.6 fl (7.4-10.4); PLATELET 177 x1000/uL (130-400); RED BLOOD CELL COUNT 4.15 mill/uL (4.7-6.1); RED CELL DISTRIBUTION WIDTH 13.8 % (11.6-14.6)
[2020-01-13 05:38] LABS: CHLORIDE 99 mEq/L (98-107)
[2020-01-13] MEDS: MIDODRINE HCL 5MG TABLET PO SCH ×3 (06:44→22:21)
[2020-01-13] MEDS: BLOOD SUGAR DIAGNOSTIC STRIP TEST SCH ×4 (06:55→18:46)
[2020-01-13] MEDS: INSULIN LISPRO 100 UNITS/ML SUBCUT SCH ×4 (06:57→18:44)
[2020-01-13 09:41] LABS: PLATELET ESTIMATE NORMAL
[2020-01-13] MEDS: DOCUSATE SODIUM SUGAR FREE 100MG/10ML UDC NG SCH (10:04)
[2020-01-13] MEDS: QUETIAPINE FUMARATE 25MG TABLET PO SCH ×2 (10:04→22:22)
[2020-01-13] MEDS: METOPROLOL TARTRATE 25MG TABLET GT SCH ×2 (10:05→22:22)
[2020-01-13] MEDS: DEXAMETHASONE 4MG TABLET PO SCH (10:05)
[2020-01-13] MEDS: ENOXAPARIN 40MG/0.4ML SYR SUBCUT SCH (10:06)
[2020-01-13] MEDS ORDERED: BISACODYL 10MG SUPP PR PRN (10:45)
[2020-01-13] MEDS ORDERED: SODIUM CHLORIDE 0.45% 1,000 ML IV SCH (11:00)
[2020-01-13] MEDS: PHENYLEPHRINE 100 MG in DEXT 5% WATER 240 ML IV PRN (11:10)
[2020-01-13 11:20] LABS: BG BASE EXCESS 0.7 mmol/L (-2.0-2.0); BG CARBOXYHEMOGLOBIN 0.3 % (0.5-1.5); BG DEOXYHEMOGLOBIN 14.3 % (0.0-5.0); BG HCO3 ACT 27.6 mmol/L (22.0-26.0); BG METHEMOGLOBIN 0.1 % (0.0-1.5); BG OXYGEN SATURATION 85.6 % (92.0-98.5); BG OXYHEMOGLOBIN 85.3 % (94.0-97.0); BG PH 7.326 (7.350-7.450); BG PO2 52.9 mmHg (75.0-100.0); BG SAMPLE SITE RIGHT RADIAL; BG TIDAL VOLUME(mL) 550 mL; BG TOTAL HEMOGLOBIN 12.8 g/dL (12.0-18.0); BG VENT MODE VENT- PRVC; BG VENT RATE 18 set
[2020-01-13] MEDS: NOREPINEPHRINE 8 MG in DEXT 5% WATER 242 ML IV PRN (12:43)
[2020-01-13] MEDS: METOPROLOL TARTRATE 5MG/5ML VIAL IV PRN ×2 (14:49→18:44)
[2020-01-13] MEDS ORDERED: SODIUM BICARBONATE 8.4% 1 MEQ/ML 50ML SYR IV ONE (18:18)
[2020-01-13] MEDS: ATORVASTATIN CALCIUM 10MG TABLET PO SCH (21:00)
[2020-01-13] MEDS: REMDESIVIR 100 MG in SODIUM CHLORIDE 0.9% 250 ML IV SCH (22:52)
[2020-01-14] VITALS (27 sets, daily range): BP systolic 42–101; BP diastolic 26–77
[2020-01-14] MEDS: IPRATROPIUM/ALBUTEROL 0.5-3(2.5)MG/3ML NEB HHN SCH ×2 (00:11→03:54)
[2020-01-14] MEDS: ACETAMINOPHEN 650MG/20.3ML UDC PO PRN (00:37)
[2020-01-14] MEDS: AMPICILLIN SOD/SULBACTAM NA 3 G in SODIUM CHLORIDE 0.9% 100 ML IV SCH ×2 (00:37→05:05)
[2020-01-14] MEDS: BLOOD SUGAR DIAGNOSTIC STRIP TEST SCH ×2 (00:44→06:30)
[2020-01-14] MEDS: INSULIN LISPRO 100 UNITS/ML SUBCUT SCH ×2 (00:44→06:00)
[2020-01-14] MEDS: FENTANYL CITRATE/PF 1,000 MCG in SODIUM CHLORIDE 0.9% 80 ML IV PRN (02:32)
[2020-01-14] MEDS: NOREPINEPHRINE 8 MG in DEXT 5% WATER 242 ML IV PRN (04:50)
[2020-01-14] MEDS: MIDODRINE HCL 5MG TABLET PO SCH (05:06)
[2020-01-14 05:17] LABS: CHLORIDE 101 mEq/L (98-107)
[2020-01-14 08:05] LABS: HEMATOCRIT. 36.8 % (42.0-52.0); HEMOGLOBIN. 12.2 g/dL (14.0-18.0); MEAN CORPUSCULAR HEMOGLOBIN 29.8 pg (28.0-32.0); MEAN CORPUSCULAR VOLUME 90.1 fL (80.0-94.0); MEAN PLATELET VOLUME 10.6 fl (7.4-10.4); PLATELET 174 x1000/uL (130-400); RED BLOOD CELL COUNT 4.09 mill/uL (4.7-6.1); RED CELL DISTRIBUTION WIDTH 14.1 % (11.6-14.6)
[2020-01-14 10:09] LABS: NUCLEATED RED BLOOD CELLS 1 /100 WBC; PLATELET ESTIMATE NORMAL
== END 2020-01-14 07:12 | disposition expired | DRG 720 ==
LOC: ER 11:08 → MICUSO 13:51 → 7WST 01-01 02:00 → MICUSO 01-04 09:19
PROVIDERS: ADMIT Internal Medicine; ATTEND Internal Medicine
PROC: 5A09357 Assistance with Respiratory Ventilation, Less than 24 Consecutive Hours, Continuous Positive Airway Pressure (ICD-10-PCS; 2019-12-31)
PROC: 30233K1 Transfusion of Nonautologous Frozen Plasma into Peripheral Vein, Percutaneous Approach (ICD-10-PCS; 2020-01-03)
PROC: 5A1955Z Respiratory Ventilation, Greater than 96 Consecutive Hours (ICD-10-PCS; principal; 2020-01-04)
PROC: 0BH18EZ Insertion of Endotracheal Airway into Trachea, Via Natural or Artificial Opening Endoscopic (ICD-10-PCS; 2020-01-04)
PROC: 05HY33Z Insertion of Infusion Device into Upper Vein, Percutaneous Approach (ICD-10-PCS; 2020-01-05)
PROC: B54MZZA Ultrasonography of Right Upper Extremity Veins, Guidance (ICD-10-PCS; 2020-01-05)
PROC: 03HC33Z Insertion of Infusion Device into Left Radial Artery, Percutaneous Approach (ICD-10-PCS; 2020-01-07)
PROC: XW033E5 Introduction of Remdesivir Anti-infective into Peripheral Vein, Percutaneous Approach, New Technology Group 5 (ICD-10-PCS; 2020-01-09)
DX: A41.89 Other specified sepsis (principal); U07.1 COVID-19; J96.01 Acute respiratory failure with hypoxia; J12.89 Other viral pneumonia; E43 Unspecified severe protein-calorie malnutrition; E87.1 Hypo-osmolality and hyponatremia; E87.8 Other disorders of electrolyte and fluid balance, not elsewhere classified; E66.9 Obesity, unspecified; E11.65 Type 2 diabetes mellitus with hyperglycemia; R65.21 Severe sepsis with septic shock; Z66 Do not resuscitate; I11.0 Hypertensive heart disease with heart failure; I50.40 Unspecified combined systolic (congestive) and diastolic (congestive) heart failure; R74.0 Nonspecific elevation of levels of transaminase and lactic acid dehydrogenase [LDH]; D72.810 Lymphocytopenia; E11.649 Type 2 diabetes mellitus with hypoglycemia without coma; B97.89 Other viral agents as the cause of diseases classified elsewhere; E87.0 Hyperosmolality and hypernatremia; Z68.24 Body mass index [BMI] 24.0-24.9, adult; Z78.1 Physical restraint status; I46.9 Cardiac arrest, cause unspecified
CPT/HCPCS: 36415; 36600; 71045; 76937; 80048; 80053; 80061; 80076; 81003; 82375; 82728; 82805; 82962; 83036; 83605; 83615; 83735; 83880; 84145; 84443; 84484; 85025; 85379; 86140; 86705; 86709; 86803; 86850; 86900; 86927; 87070; 87077; 87186; 87340; 87635; 93005; 94003; 94640; 94660; 96365; 99291; C1725; J0295; J0456; J0696; J1650; J1815; J1940; J1956; J2250; J2370; J2543; J3010; J3490; J7050; J7060; J7070; J8540; P9017; P9047; Q9957